=== PATIENT | male | born 1970 | race Caucasian/White ===

== ENCOUNTER → 2017-06-04 14:43 | Outpatient (CLI) | payer BC, SELFPAY ==
--- NOTE | 2017-06-04 14:47 | MR_ITS ---
MR cervical spine wo MR cervical spine wo con, MR 3-d myelogram/MRCP Ordering Physician: Emir White MD Patient Age: 46 years: Male HISTORY: : Neck Pain right-sided neck pain and swelling. Pops with moving symptoms 2 months since hitting head COMPARISON: No previous relevant studies available for comparison TECHNIQUE: Sagittal STIR, T1, T2, axial T1 and T2. On 1.5T Siemens wide bore MRI. 3-D MR myelogram image set obtained & performed on MRI workstation. Additional sagittal thin section T2 weighted dataset obtained from this latter acquisition as well (---76 CPT) FINDINGS Cranial cervical junction appears satisfactory. The cervical vertebral bodies appear intact no fracture nor lesion evident. C2/3. Disc and cord normal. C3/4 disc and cord normal. Suggestion mild facet arthropathy and hypertrophy is C2/3 and C3/4. Slightly more evident to the right. C4/5. Disc intact cord normal. C5-C6. Mild disc protrusion is seen just to the right of midline. Extends 3 mm posteriorly to indents the thecal sac & just abuts & slightly efface anterior right aspect of the cervical cord. This is mainly soft disc with only minimal associated spurring at its base. C6/C7 disc intact C7/T1 T1/T2 T2/33 disc intact 3-D MR myelogram image set also nicely demonstrates a a focal indentation upon the thecal sac from this rightward disc protrusion at C5-6 ===IMPRESSION======= 1. ... C5-C6. Disc protrusion right paracentral. Just abuts the cervical cord.. Mainly soft disc protrusion, with minimal spurring associated. .. Suspect Mild facet hypertrophy C3/4 C2/3
== END ==
PROVIDERS: PCP Emergency Medicine; Visit Provider Emergency Medicine
DX: M54.2 Cervicalgia (principal)
CPT/HCPCS: 72141; 76376

== ENCOUNTER → 2017-06-06 10:55 | Outpatient (REF) | payer BC, SELFPAY ==
[2017-06-06 18:59] LABS: Amphetamine/Metha Screen,Urine Negative ng/mL (<1000); Barbiturates Screen,Urine Negative ng/mL (<200); Benzodiazepines Screen,Urine Negative ng/mL (200); Cannabinoid Screen,Urine Positive ng/mL (<50); Cocaine Screen,Urine Negative ng/g (<300); Methadone Screen,Urine Negative ng/mL (<300); Opiate Screen,Urine Positive ng/mL (<300); Phencyclidine Screen,Urine Negative ng/mL (<25)
== END ==
LOC: LAB 10:55
PROVIDERS: Visit Provider Emergency Medicine
DX: Z79.899 Other long term (current) drug therapy (principal)
CPT/HCPCS: 80305

== ENCOUNTER → 2017-06-24 10:07 | Outpatient (POV) | payer BC, SELFPAY ==
[2017-06-24 10:42] VITALS: BP 171/105; PULSE 76; RESP 18; TEMP 36.7; O2SAT 98
--- NOTE | 2017-06-24 12:57 | [facility]H.PMCON ---
Assessment and Plan (1) Bulging of cervical intervertebral disc Current visit: Yes Status: Chronic Category: Medical Code(s): M50.20 - Other cervical disc displacement, unspecified cervical region (2) DJD (degenerative joint disease) of cervical spine Current visit: Yes Status: Chronic Category: Medical Code(s): M47.812 - Spondylosis without myelopathy or radiculopathy, cervical region (3) Cervical radiculopathy Current visit: Yes Status: Chronic Category: Medical Code(s): M54.12 - Radiculopathy, cervical region - Assessment and plan all Dx Assessment and Plan for all problems:: We will plan a C5-C6 level epidural injection. I will follow-up with the patient after this injection and see how this. Patient has been doing home stretching routines and is to take anti-inflammatories due to cardiac issues. Patient is on Plavix we will get permission for him to be off of this medication 7 days prior to the injection. I will follow-up with this patient after his injection and reassess his symptoms at that time. This note was dictated using voice recognition software and may contain errors or omissions HPI - Data of Consult Consult date: 06/24/17 Requesting Physician: Sabine Almeida APRN Primary Care Provider: Emir White MD - Consult Narrative Reason for consult: Neck pain History of present illness: Mr. Briggs is a 46 year old male who presents today for consultation in regards to neck pain. Patient states that he is having radiation into his right shoulder. Patient is also having headaches. 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 He states that this is when the pain began. Patient states it is 3 out of 10 today.. Patient is currently on Percocet and Zanaflex however he states that it is not helping much. Patient states that working and looking up increases the pain while rest decreases his pain. Have an MRI showing a bulging disc at C5-C6. Patient also currently on Plavix by Dr. Ventura. CC: Sabine Almeida APRN [facility] History I have reviewed the patient's past medical history: Yes Medical History: Reports:: Coronary Artery Disease, Hyperlipidemia, Hypertension Other Surgeries: Yes: Coronary Stent, Hernia Repair Amputation: No Fractures: No - *Social History Educational Level: Completed High School Smoking Status: Current every day smoker Tobacco Type: cigarettes # Packs/Day (cigarettes): 1 Alcohol Intake: never Substance Use Type: denies use Occupational Status: employed Housing: house Household Members: spouse - Psychiatric History Expresses thoughts of harming self/others: None Suicide Plan Description: No Plan *Family Hx:: Hyperlipidemia, Hypertension Review of Systems - Review of Systems ROS General: no recent weight change, no fever, no sleep disturbances Respiratory: no cough, no shortness of air, no recurring pulmonary infections Cardiovascular/Peripheral Vascular: No chest pain, No palpitations, no edema, no shortness of breath. Gastrointestinal: no incontinence, normal bowel movements reported Genitourinary: no incontinence Musculoskeletal: Neck pain, shoulder pain Psychiatric: normal mood/ affect, [denies depression], [denies anxiety] Neurological: [denies weakness in extremities], [denies balance issues] Meds Home Medications Medication Instructions Recorded Confirmed Type aspirin 81 mg tablet,delayed 81 mg PO DAILY tab 05/20/17 History release clopidogrel 75 mg tablet 75 mg PO DAILY tab 05/20/17 History pravastatin 40 mg tablet 40 mg PO QHS 05/20/17 History Tizanidine HCl [Zanaflex 4mg 4 mg PO TID 06/24/17 06/24/17 History tablet] Allergies Allergy/AdvReac Type Severity Reaction Status Date / Time hydrocodone Allergy Rash Verified 06/06/17 08:51 No Known Drug Allergies Allergy Unknown Uncoded 06/06/17 08:51 Objective Vital signs: Temp Pulse Resp BP Puls
--- NOTE | 2017-06-24 13:00 | P.CONS_ITS ---
Assessment and Plan (1) Bulging of cervical intervertebral disc Current visit: Yes Status: Chronic Category: Medical Code(s): M50.20 - Other cervical disc displacement, unspecified cervical region (2) DJD (degenerative joint disease) of cervical spine Current visit: Yes Status: Chronic Category: Medical Code(s): M47.812 - Spondylosis without myelopathy or radiculopathy, cervical region (3) Cervical radiculopathy Current visit: Yes Status: Chronic Category: Medical Code(s): M54.12 - Radiculopathy, cervical region - Assessment and plan all Dx Assessment and Plan for all problems:: We will plan a C5-C6 level epidural injection. I will follow-up with the patient after this injection and see how this. Patient has been doing home stretching routines and is to take anti-inflammatories due to cardiac issues. Patient is on Plavix we will get permission for him to be off of this medication 7 days prior to the injection. I will follow-up with this patient after his injection and reassess his symptoms at that time. This note was dictated using voice recognition software and may contain errors or omissions HPI - Data of Consult Consult date: 06/24/17 Requesting Physician: Sabine Almeida APRN Primary Care Provider: Emir White MD - Consult Narrative Reason for consult: Neck pain History of present illness: Mr. Briggs is a 46 year old male who presents today for consultation in regards to neck pain. Patient states that he is having radiation into his right shoulder. Patient is also having headaches. 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 He states that this is when the pain began. Patient states it is 3 out of 10 today.. Patient is currently on Percocet and Zanaflex however he states that it is not helping much. Patient states that working and looking up increases the pain while rest decreases his pain. Have an MRI showing a bulging disc at C5-C6. Patient also currently on Plavix by Dr. Vetnura. CC: Sabine Almeida APRN [facility] History I have reviewed the patient's past medical history: Yes Medical History: Reports:: Coronary Artery Disease, Hyperlipidemia, Hypertension Other Surgeries: Yes: Coronary Stent, Hernia Repair Amputation: No Fractures: No - *Social History Educational Level: Completed High School Smoking Status: Current every day smoker Tobacco Type: cigarettes # Packs/Day (cigarettes): 1 Alcohol Intake: never Substance Use Type: denies use Occupational Status: employed Housing: house Household Members: spouse - Psychiatric History Expresses thoughts of harming self/others: None Suicide Plan Description: No Plan *Family Hx:: Hyperlipidemia, Hypertension Review of Systems - Review of Systems ROS General: no recent weight change, no fever, no sleep disturbances Respiratory: no cough, no shortness of air, no recurring pulmonary infections Cardiovascular/Peripheral Vascular: No chest pain, No palpitations, no edema, no shortness of breath. Gastrointestinal: no incontinence, normal bowel movements reported Genitourinary: no incontinence Musculoskeletal: Neck pain, shoulder pain Psychiatric: normal mood/ affect, [denies depression], [denies anxiety] Neurological: [denies weakness in extremities], [denies balance issues] Meds Home Medications Medication Instructions Recorded Confirmed Type aspirin 81 mg tablet,delayed 81 mg PO DAILY tab 05/20/17 History release
== END ==
PROVIDERS: PCP Emergency Medicine; Visit Provider Clinical Nurse Specialist Family Health
DX: M50.20 Other cervical disc displacement, unspecified cervical region (principal); M47.812 Spondylosis without myelopathy or radiculopathy, cervical region; M54.12 Radiculopathy, cervical region
CPT/HCPCS: 99202

== ENCOUNTER → 2017-07-04 13:08 | Outpatient (REF) | payer BC, SELFPAY ==
[2017-07-04 19:27] LABS: Amphetamine/Metha Screen,Urine Negative ng/mL (<1000); Barbiturates Screen,Urine Negative ng/mL (<200); Benzodiazepines Screen,Urine Negative ng/mL (200); Cannabinoid Screen,Urine Positive ng/mL (<50); Cocaine Screen,Urine Negative ng/g (<300); Methadone Screen,Urine Negative ng/mL (<300); Opiate Screen,Urine Negative ng/mL (<300); Phencyclidine Screen,Urine Negative ng/mL (<25)
== END ==
LOC: LAB 13:08
PROVIDERS: Visit Provider Emergency Medicine
DX: Z79.899 Other long term (current) drug therapy (principal)
CPT/HCPCS: 80305

== ENCOUNTER → 2017-08-04 12:57 | Outpatient (REF) | payer BC, SELFPAY ==
[2017-08-04 21:57] LABS: Amphetamine/Metha Screen,Urine Negative ng/mL (<1000); Barbiturates Screen,Urine Negative ng/mL (<200); Benzodiazepines Screen,Urine Negative ng/mL (200); Cannabinoid Screen,Urine Negative ng/mL (<50); Cocaine Screen,Urine Negative ng/g (<300); Methadone Screen,Urine Negative ng/mL (<300); Opiate Screen,Urine Positive ng/mL (<300); Phencyclidine Screen,Urine Negative ng/mL (<25)
== END ==
LOC: LAB 12:57
PROVIDERS: Visit Provider Emergency Medicine
DX: Z79.899 Other long term (current) drug therapy (principal)
CPT/HCPCS: 80305